=== PATIENT | male | born 1995 | race Asian ===

== ENCOUNTER 2018-03-20 01:43 | Emergency (ER) | payer BC ==
[2018-03-20] MEDS ORDERED: Ondansetron HCl/PF 4 MG/2 ML Vial ONE (02:48)
== END 2018-03-20 03:34 | disposition home or self-care (01) ==
LOC: EDBD 01:43 → ERS 01:43
DX: F10.129 Alcohol abuse with intoxication, unspecified (principal)
CPT/HCPCS: 96361; 96374; J2405